=== PATIENT | female | born 1975 | race American Indian/Alaskan Native ===

== ENCOUNTER 2017-02-11 18:28 | Emergency (ER) | payer SELFPAY ==
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
[2017-02-11] MEDS ORDERED: MOTRIN PO ONE (23:36)
--- NOTE | 2017-02-12 00:20 | XRay Report ---
FINAL REPORT PROCEDURE: XR CHEST ROUTINE 2V TECHNIQUE: PA and lateral chest radiographs were obtained. CPT 37105 HISTORY: chest pain COMPARISON: No prior studies are available for comparison. FINDINGS: Heart: Normal. Mediastinum/Vessels: Normal. Lungs/Pleural space: Normal. Bony thorax: No acute osseous abnormality. Other: IMPRESSION: Normal examination.
[2017-02-12 00:26] LABS: Basophils % (Auto) 0.5 % (0.0-1.8); Eosinophils % (Auto) 3.7 % (0.0-4.3); Hematocrit 27.8 % (30.3-42.9); Hemoglobin 8.8 gm/dl (10.1-14.3); Mean Corpuscular HGB Conc 32 % (30-34); Mean Corpuscular Volume 75 fl (79-97); Platelet Count 231 K/mm3 (140-440); Red Blood Count 3.73 M/mm3 (3.65-5.03); Red Cell Distribution Width 17.9 % (13.2-15.2); White Blood Count 6.8 K/mm3 (4.5-11.0)
[2017-02-12 00:27] LABS: Mean Corpuscular Hemoglobin 24 pg (28-32)
[2017-02-12 00:52] LABS: Anion Gap 16 mmol/L; BUN/Creatinine Ratio 21.42; Blood Urea Nitrogen 15 mg/dL (7-17); Calcium 8.3 mg/dL (8.4-10.2); Carbon Dioxide 23 mmol/L (22-30); Chloride 106.2 mmol/L (98-107); Creatine Kinase 300 units/L (30-135); Glucose 105 mg/dL (65-100); Potassium 3.6 mmol/L (3.6-5.0); Sodium 142 mmol/L (137-145)
[2017-02-12 01:30] VITALS: BP 127/82
== END 2017-02-12 00:10 | disposition home or self-care (01) ==
LOC: ED 18:28
DX: R07.9 Chest pain, unspecified (principal); S39.012A Strain of muscle, fascia and tendon of lower back, initial encounter; D50.9 Iron deficiency anemia, unspecified; V43.52XA Car driver injured in collision with other type car in traffic accident, initial encounter; Y93.9 Activity, unspecified; Y92.410 Unspecified street and highway as the place of occurrence of the external cause; Y99.9 Unspecified external cause status
CPT/HCPCS: 36415; 71020; 80048; 82550; 82553; 84484; 85025; 93005; 93010

== ENCOUNTER 2019-02-27 07:38 | Emergency (ER) | payer BC ==
[2019-02-27] MEDS ORDERED: dexAMETHasone 4 MG/ML VIAL IV ONE (08:23)
[2019-02-27] MEDS ORDERED: SUMAtriptan SUCCINATE 6 MG/0.5 ML INJ SUB-Q ONE (08:23)
[2019-02-27] MEDS ORDERED: SODIUM CHLORIDE 0.9% 1000 ML 1,000 ML IV ONE (08:23)
[2019-02-27] MEDS ORDERED: diphenhydrAMINE 50 MG/ML VIAL IV ONE (08:23)
--- NOTE | 2019-02-27 08:29 | Emergency Department Report ---
ED Headache HPI - General Chief Complaint: Headache Stated Complaint: SEVERE HEADACHE/WEAKNESS Time Seen by Provider: 02/27/19 08:20 Source: patient Exam Limitations: no limitations - History of Present Illness Initial Comments: Mrs. Hanks is a 43 yo female who presents with severe frontal headache since last night. No home treatment attempted. No photophobia. No phonophobia. She feels as if her iron is low. No vomiting. No neck pain. Gradual onset of headache last night. This is the second headache in the past 10 days. Timing/Duration: constant Quality: severe, achy, pressure Head Injury Location: frontal Associated Symptoms: fatigue Allergies/Adverse Reactions: Allergies No Known Allergies Allergy (Verified 12/22/15 22:31) Home Medications: Ambulatory Orders HYDROcodone/APAP 5-325 [[place] 5/325] 1 each PO Q6HR PRN #14 tablet 12/23/15 Cyclobenzaprine [Flexeril] 10 mg PO TID PRN #15 tablet 02/11/17 Ibuprofen [Motrin 600 MG tab] 600 mg PO Q8H PRN #30 tablet 02/11/17 Butalb/Acetaminophen/Caffeine [Fioricet 50-300-40 mg CAP] 1 cap PO Q6HR PRN #10 cap 02/27/19 ED Review of Systems ROS: Stated complaint: SEVERE HEADACHE/WEAKNESS Other details as noted in HPI Comment: All other systems reviewed and negative Constitutional: malaise. denies: chills, fever ENT: denies: ear pain, dental pain Respiratory: denies: cough, shortness of breath Cardiovascular: denies: chest pain Gastrointestinal: denies: abdominal pain, nausea, vomiting ED Past Medical Hx - Past Medical History Previous Medical History?: No - Surgical History Past Surgical History?: No - Social History Smoking Status: Never Smoker Substance Use Type: None - Medications Home Medications: Home Medications Medication Instructions Recorded Confirmed Last Taken Type HYDROcodone/APAP 5-325 [[place] 1 each PO Q6HR PRN #14 tablet 12/23/15 Unknown Rx 5/325] Cyclobenzaprine [Flexeril] 10 mg PO TID PRN #15 tablet 02/11/17 Unknown Rx Ibuprofen [Motrin 600 MG tab] 600 mg PO Q8H PRN #30 tablet 02/11/17 Unknown Rx Butalb/Acetaminophen/Caffeine 1 cap PO Q6HR PRN #10 cap 10/11/19 Unknown Rx [Fioricet 50-300-40 mg CAP] ED Physical Exam - General Limitations: No Limitations General appearance: alert, other (tearful, appears uncomfortable, nontoxic, supple neck) - Head Head exam: Present: atraumatic, normocephalic, normal inspection - Eye Eye exam: Present: normal appearance - ENT ENT exam: Present: mucous membranes moist - Neck Neck exam: Present: normal inspection, full ROM. Absent: tenderness, meningismus - Respiratory Respiratory exam: Present: normal lung sounds bilaterally. Absent: respiratory distress, wheezes, rales, stridor - Cardiovascular Cardiovascular Exam: Present: regular rate, normal rhythm, normal heart sounds. Absent: systolic murmur, diastolic murmur, rubs, gallop - GI/Abdominal GI/Abdominal exam: Present: soft. Absent: distended, tenderness, guarding, rebound - Extremities Exam Extremities exam: Present: normal inspection - Back Exam Back exam: Present: normal inspection - Neurological Exam Neurological exam: Present: alert, oriented X3 - Psychiatric Psychiatric exam: Present: normal affect, normal mood - Skin Skin exam: Present: warm, dry, intact, normal color. Absent: rash ED Course Vital Signs 02/27/19 07:55 Temperature 97.6 F Pulse Rate 66 Respiratory 18 Rate Blood Pressure 122/69 O2 Sat by Pulse 100 Oximetry ED Medical Decision Making - Lab Data Result diagrams: 02/27/19 08:30 02/27/19 08:30 - Radiology Data Radiology results: report reviewed CT head without acute findings according to radiology report - Medical Decision Making Mrs. Hanks presents to ER with headache. Has had similar headaches in the past. However, has never needed ED evaluation. Consequently, CT head obtained to rule out ICH. DDx: Pseudotumor cerebri, tension headache, migraine headache viral syndrome, no fever or neck stiffness to indicate meningitis. She felt much better after treatment in the ED. I have reviewed last which revealed mild microcytic anemia which is above baseline for patient. Chemistry urinalysis unremarkable. Prescribed Fioricet. Discharged home. Critical care attestation.: If time is entered above; I have spent that time in minutes in the direct care of this critically ill patient, excluding procedure time. ED Disposition Clinical Impression: Acute headache, Iron deficiency anemia Disposition: TO HOME OR SELFCARE Is pt being admited?: No Does the pt Need Aspirin: No Condition: Stable Instructions: Acute Headache (ED), Iron Deficiency Anemia (ED) Prescriptions: Butalb/Acetaminophen/Caffeine [Fioricet 50-300-40 mg CAP] 1 cap PO Q6HR PRN #10 cap PRN Reason: Headache Referrals: PRIMARY CARE, [Primary Care Provider] - 3-5 Days Forms: Work/School Release Form(ED)
[2019-02-27] MEDS ORDERED: HYDROcodone/ACETAMINOPHEN 5-325 MG TAB PO ONE (09:00)
[2019-02-27 09:12] LABS: BUN/Creatinine Ratio 15; Blood Urea Nitrogen 9 mg/dL (7-17); Calcium 8.6 mg/dL (8.4-10.2); Hemolysis Index 0
--- NOTE | 2019-02-27 09:19 | Cat Scan Report ---
. CT HEAD WITHOUT CONTRAST INDICATION / CLINICAL INFORMATION: Headache. TECHNIQUE: Axial imaging performed from the skull apex through the skull base without the use of cont rast. Sagittal and coronal reformatted images. All CT scans at this location are performed using CT dose reduction for ALARA by means of automated exposure control. COMPARISON: None available. FINDINGS: CEREBRAL PARENCHYMA: No significant abnormality. No acute territorial infarct. HEMORRHAGE: None. EXTRA-AXIAL SPACES: Normal in size and morphology for the patient's age. VENTRICULAR SYSTEM: Normal in size and morphology for the patient's age. MIDLINE SHIFT OR HERNIATION: None. CEREBELLUM / BRAINSTEM: No significant abnormality. CALVARIUM: No significant abnormality. ORBITS: Normal as visualized. PARANASAL SINUSES / MASTOID AIR CELLS: Normal as visualized. SOFT TISSUES of HEAD: No significant abnormality. ADDITIONAL FINDINGS: None. IMPRESSION: No acute intracranial abnormality. Signer Name: Antony Treviño Jr, MD Signed: 02/27/2019 9:15 AM Workstation Name: [id number]
[2019-02-27 09:26] LABS: HCG Qualitative,Urine Negative (Negative)
[2019-02-27] MEDS ORDERED: KETOROLAC 30 MG/1 ML INJ IV ONE (09:59)
[2019-02-27] MEDS ORDERED: MORPHINE 4 MG/1 ML INJ IV ONE (10:00)
[2019-02-27 10:03] LABS: Hemoglobin 10.9 gm/dl (10.1-14.3); Mean Corpuscular HGB Conc 32 % (30-34); Mean Corpuscular Volume 77 fl (79-97); Platelet Count 218 K/mm3 (140-440); Red Blood Count 4.41 M/mm3 (3.65-5.03)
[2019-02-27 10:05] LABS: Red Cell Distribution Width 20.5 % (13.2-15.2)
[2019-02-27 11:56] VITALS: BP 120/76
[2019-02-27 12:46] LABS: Basophils % (Manual) 0 % (0.0-1.8); Total Cells Counted 100
[2019-02-27 12:47] LABS: Anisocytosis Few; Ovalocytes Few; Platelet Estimate Consistent w Auto; Poikilocytosis Few; Tear Drop Cells Few
== END 2019-02-27 11:55 | disposition home or self-care (01) ==
LOC: ED 07:38
DX: R51 Headache (principal); D50.9 Iron deficiency anemia, unspecified
CPT/HCPCS: 36415; 70450; 80048; 81025; 85007; 85025; 96372; 96374; 96375; 99284; J1100; J1200; J1885; J2270; J7030; J3030

== ENCOUNTER 2020-04-05 06:44 | Day surgery (SDC) | payer BC ==
[2020-04-05] MEDS ORDERED: ASPIRIN EC 325 MG TAB PO SCH (07:11)
[2020-04-05 07:39] LABS: Basophils % (Auto) 0.3 % (0.0-1.8); Eosinophils # (Auto) 0.1 K/mm3 (0.0-0.4); Eosinophils % (Auto) 3.2 % (0.0-4.3); Hematocrit 28.8 % (30.3-42.9); Lymphocytes # (Auto) 1.7 K/mm3 (1.2-5.4); Lymphocytes % (Auto) 37.6 % (13.4-35.0); Mean Corpuscular HGB Conc 31 % (30-34); Mean Corpuscular Volume 74 fl (79-97); Monocytes # (Auto) 0.3 K/mm3 (0.0-0.8); Monocytes % (Auto) 6.8 % (0.0-7.3); Platelet Count 287 K/mm3 (140-440); Red Blood Count 3.87 M/mm3 (3.65-5.03); Red Cell Distribution Width 19.4 % (13.2-15.2)
[2020-04-05] MEDS: SODIUM CHLORIDE 0.9% 500 ML 500 ML IV SCH ×2 (07:39→08:39)
[2020-04-05 07:49] LABS: INR 0.96 (0.87-1.13)
[2020-04-05 07:53] LABS: Blood Urea Nitrogen 12 mg/dL (7-17); Calcium 8.7 mg/dL (8.4-10.2); Hemolysis Index 0
[2020-04-05] MEDS ORDERED: HEPARIN/NS 5000 UNIT/500ML 1,000 ML IR ONE (07:55)
[2020-04-05 08:02] LABS: BUN/Creatinine Ratio 17
[2020-04-05] MEDS: LIDOCAINE (2%) 20 MG/1 ML VIAL 20 ML MDV INFILTRATI ONE ×2 (08:38→08:56)
[2020-04-05] MEDS: fentaNYL 100 MCG/2 ML INJ ONE ×3 (08:38→08:56)
[2020-04-05] MEDS: MIDAZOLAM 2 MG/2 ML INJ ONE ×3 (08:38→08:56)
[2020-04-05] MEDS: VERAPAMIL 5 MG/2 ML INJ ONE ×2 (08:39→08:58)
[2020-04-05] MEDS: HEPARIN 10,000 UNITS/10 ML VIAL ONE ×2 (08:39→08:58)
[2020-04-05] MEDS ORDERED: HYDROcodone/ACETAMINOPHEN 5-325 MG TAB ONE (09:31)
[2020-04-05] MEDS ORDERED: HYDROcodone/ACETAMINOPHEN 5-325 MG TAB PO NR (09:31)
--- NOTE | 2020-04-05 11:14 | Short Stay Summary ---
Short Stay Documentation Date of service: 04/05/20 - History H&P: obtained from office - Allergies and Medications Current Medications: Allergies No Known Allergies Allergy (Verified 12/22/15 22:31) Home Medications Medication Instructions Recorded Confirmed Last Taken Type Ibuprofen [Motrin 600 MG tab] 600 mg PO Q8H PRN #30 tablet 02/11/17 04/05/20 03/21/20 Rx 1 tab Active Medications Sodium Chloride (Nacl 0.9% 500 Ml) 500 mls @ 50 mls/hr IV DIRECT LORA Stop: 04/05/20 17:59 Last Admin: 04/05/20 08:39 Dose: 50 mls/hr Documented by: - Brief post op/procedure progress note Date of procedure: 04/05/20 Pre-op diagnosis: abnormal stress test Post-op diagnosis: other (normal coronaries) Procedure: [facility] - see dictated cath report Anesthesia: local Estimated blood loss: none Condition: stable - Disposition Condition at discharge: Good Disposition: DC-01 TO HOME OR SELFCARE - Discharge Diagnoses (1) Normal coronary arteries Status: Chronic (2) Prediabetes Status: Chronic (3) Obesity Status: Chronic Short Stay Discharge Plan Activity: advance as tolerated Diet: low fat, low cholesterol, low salt, diabetic Wound: open to air, keep clean and dry, per your surgeon's advice Follow up with: TATY ENGLE MD [Primary Care Provider] - 7 Days THIERRY VINSON MD [Staff Physician] - 7 Days Forms: CardCath PCI D/C Instructions, Work/School Excuse Out Patient, Work/School Release Form
--- NOTE | 2020-04-05 12:24 | Cardiac Catherization Report ---
INDICATION FOR PROCEDURE: A 44-year-old -[place] female with history of chest pains, prediabetes and abnormal nuclear test, was noted to have small reversible anterior and apical defect suggestive of mild ischemia. The patient is having atypical chest pains. Considering the continued atypical chest pains with abnormal stress nuclear imaging, the patient is scheduled for cardiac catheterization for definitive diagnosis and treatment. The patient is aware of the procedure, potential complications and alternatives of therapy available. DESCRIPTION OF PROCEDURE: The patient was brought to the catheterization laboratory in a fasting condition. The patient was evaluated for moderate sedation and was felt to be appropriate candidate for moderate sedation. The patient received IV Versed and fentanyl for sedation. Local anesthesia was given in the right wrist area and right radial access was obtained using a 21-gauge needle and a 5-Austrian slender sheath was introduced. The patient received 5 mg of intra-arterial verapamil and 3000 units of intravenous heparin. Subsequently, using 5-Austrian multipurpose catheter, coronary angiograms of the left coronary artery were obtained in multiple views followed by angiograms of the right coronary artery and left ventriculogram done in [place] projection using hand injections. Left ventricular pressures were measured. No gradient was documented across the aortic valve. Catheter was pulled out. The patient tolerated the procedure well. At the end of the procedure, the patient is communicating normally, oriented x 3 and breathing normally. No focal deficits were noted. Throughout the procedure, the patient was monitored with pulse oximetry, EKG monitoring and hemodynamic monitoring. No significant changes were noted. The patient was transferred to the room in stable condition. Following findings were noted. HEMODYNAMICS: 1. Opening aortic pressure 137/77. Left ventricular pressure 133/26. No gradient across the aortic valve. Estimated ejection fraction 60-65%. 2. Left ventriculogram done in [place] projection showed normal sized left ventricle with normal contractility. End-diastolic and end-systolic volumes are normal. As noted above, end-diastolic pressure is elevated up to 26 mmHg. 3. Right coronary artery dominant artery arises normally from right coronary cusp, angiographically smooth and normal. 4. Left coronary artery arises normally from left coronary cusp. Left main is short, immediately dividing into LAD, which curves around the apex. LAD and its branches, circumflex artery and its branch are angiographically smooth and normal. Left main is normal. FINAL IMPRESSION: 1. Normal left ventricular systolic function with elevated end-diastolic pressure of 26 mmHg. 2. Angiographically smooth and normal coronary anatomy, right coronary artery being the dominant vessel. 3. The patient tolerated the moderate sedation well without any side effects. 4. Procedure was uncomplicated. At this time, the patient does not have any angiographically documented coronary artery disease and no significant calcifications noted on fluoroscopy. At this time, continue present risk factor modification. Etiology of her chest pain is not clear. Same was explained to the patient. The patient is also supposed to have a myomectomy scheduled. Considering the above findings, her cardiac status is stable to undergo myomectomy. JOB# [id number] PILI/MARISOL
[2020-04-05 12:52] VITALS: BP 114/64
== END 2020-04-05 15:00 | disposition home or self-care (01) ==
LOC: CATHLABREC 06:44
PROVIDERS: ATTEND Internal Medicine
DX: R07.89 Other chest pain (principal); R94.39 Abnormal result of other cardiovascular function study; E66.09 Other obesity due to excess calories; R73.03 Prediabetes; Z68.39 Body mass index [BMI] 39.0-39.9, adult; Z98.890 Other specified postprocedural states; Z83.3 Family history of diabetes mellitus; Z79.899 Other long term (current) drug therapy; Z82.49 Family history of ischemic heart disease and other diseases of the circulatory system; Z86.2 Personal history of diseases of the blood and blood-forming organs and certain disorders involving the immune mechanism
CPT/HCPCS: 36415; 80048; 85025; 85610; 85730; 93005; 93458; 99156; 99157; C1894; J1644; J2250; J3010; J7040; Q9967

== ENCOUNTER 2021-01-27 21:18 | Emergency (ER) | payer BC | END 2021-01-27 22:45 | disposition left against medical advice (07) | LOC: ED 21:18 | DX: R51.9 Headache, unspecified (principal); Z53.21 Procedure and treatment not carried out due to patient leaving prior to being seen by health care provider ==